=== PATIENT | male | born 1950 | race Caucasian/White ===

== ENCOUNTER 2024-01-03 10:29 | Observation (INO) ==
[2024-01-03 11:15] LABS: Basophils # (auto) 0.06 K/uL (0.00-0.20); Basophils % (auto) 0.5 %; Eosinophils # (auto) 0.23 K/uL (0.00-0.50); Hematocrit (blood only) 45.5 % (42.0-52.0); Hemoglobin 15.7 g/dl (14.0-18.0); Immature Granulocytes # (auto) 0.02 K/uL (0.01-0.20); Immature Granulocytes % (auto) 0.2 %; Lymphocytes # (auto) 2.04 K/uL (1.20-3.40); Lymphocytes % (auto) 17.4 %; Mean Corpuscular Hemoglobin 32.4 pg (25.0-34.0); Mean Corpuscular Hgb Conc 34.5 g/dL (32.0-36.0); Mean Platelet Volume 9.5 fL (9.4-12.4); Monocytes # (auto) 0.71 K/uL (0.11-0.59); Neutrophils # (auto) 8.68 K/uL (1.40-6.50); Neutrophils % (auto) 73.9 %; Platelet Count 239 K/uL (130-400); RDW Coefficient of Variation 12.4 % (11.5-14.5); RDW Standard Deviation 42.9 fL (36.4-46.3); Red Blood Count 4.84 M/uL (4.70-6.10); White Blood Count 11.74 K/ul (4.8-10.8)
--- NOTE | 2024-01-03 11:26 | XRay Report ---
XR chest 1V portable HISTORY: 73 years-old Male dizziness COMPARISON: None TECHNIQUE: AP view of the chest FINDINGS: Heart size is mildly enlarged. Mild interstitial coarsening is likely chronic. No pneumothorax, pleur al effusion or airspace consolidation. Spondylotic spurring of the spine. IMPRESSION: Cardiomegaly without acute process. ACT 112: Negative or not required by law. The above report was generated using voice recognition software. It may contain grammatical, syntax o r spelling errors. Electronically signed by: Arjun Bain M.D. 01/03/2024 11:25 AM
[2024-01-03 11:34] LABS: Albumin Globulin Ratio 1.4 (0.9-2); Albumin Level 4.2 gm/dl (3.4-5.0); BUN Creatinine Ratio 20.5 (10-20); Bilirubin,Total 0.8 mg/dl (0.2-1.0); Calcium 9.4 mg/dl (8.6-10.3); Creatinine Clr Calc Pharmacy 102.3 ml/min; Magnesium 2.2 mg/dl (1.7-2.4); Potassium 4.3 mmol/L (3.5-5.1); Total Protein 7.2 gm/dl (6.0-8.3)
[2024-01-03 11:40] LABS: Troponin I High Sensitivity 3.3 pg/ml (0-20)
[2024-01-03 11:41] LABS: Prothrombin Time 10.9 Seconds (9.0-12.0)
[2024-01-03 12:05] LABS: Adenovirus PCR Not Detected (NotDetected); Bordetella parapertussis PCR Not Detected (NotDetected); Bordetella pertussis PCR Not Detected (NotDetected); Chlamydia pneumoniae PCR Not Detected (NotDetected); Coronavirus 229E PCR Not Detected (NotDetected); Coronavirus CoV-2 (COVID19)PCR Not Detected (NotDetected); Coronavirus HKU1 PCR Not Detected (NotDetected); Coronavirus NL63 PCR Not Detected (NotDetected); Coronavirus OC43PCR Not Detected (NotDetected); Human Metapneumovirus PCR Not Detected (NotDetected); Influenza A PCR Not Detected (NotDetected); Influenza B PCR Not Detected (NotDetected); Mycoplasma pneumoniae PCR Not Detected (NotDetected); Parainfluenza Virus 1 PCR Not Detected (NotDetected); Parainfluenza Virus 2 PCR Not Detected (NotDetected); Parainfluenza Virus 3 PCR Not Detected (NotDetected); Parainfluenza Virus 4 PCR Not Detected (NotDetected); Respiratory Syncytial VirusPCR Not Detected (NotDetected); Rhinovirus/Enterovirus PCR Not Detected (NotDetected)
[2024-01-03] MEDS: ONDANSETRON INJ 2 MG/ML 2 ML VIAL IV STA (12:07)
--- NOTE | 2024-01-03 12:11 | CT Scan Report ---
CT head/brain wo con CLINICAL HISTORY: 73 years-old Male with dizziness; amb dysfunction. Acute dizziness TECHNIQUE: Multiple axial CT images of the head were obtained without contrast. A dose lowering tech nique was utilized adhering to the principles of ALARA. CT DOSE: 859.95 mGy.cm COMPARISON: None. FINDINGS: No acute intracranial hemorrhage, midline shift, intracranial mass, hydrocephalus, territorial ischem ia or abnormal extra-axial collection. Motion degraded exam. Involutional changes with probable chron ic microvascular ischemic disease. Ill-defined 2 cm hypodense focus in the left cerebellum, image 10 series 2. The calvarium is intact. Mild/moderate thickening of the right maxillary and ethmoid sinuses. Mastoi d air cells are clear. IMPRESSION: 1. Motion degraded exam. 2. Ill-defined 2 cm hypodense focus in the left cerebellum suggestive of an age-indeterminate infarct . 3. Involutional changes with chronic microvascular ischemic disease. ACT 112: Negative or not required by law. The above report was generated using voice recognition software. It may contain grammatical, syntax o r spelling errors. Electronically signed by: Arjun Bain M.D. 01/03/2024 12:08 PM
--- NOTE | 2024-01-03 12:24 | Emergency Department Note ---
Impression & Plan Dizziness, Stroke-like symptoms ED Provider Note HISTORY OF PRESENT ILLNESS: Patient is a 73-year-old male presenting with dizziness. Patient reports that when he woke up this morning he felt very dizzy like the world was spinning and he was going to pass out. He reports that this occurred at around 8:30 AM. He states that he went to bed normal at 2200 last night. He has a history of vertigo but states this feels different. He states that he has had nausea and a few episodes of vomiting. His reports that he seems very groggy and not his normal self. Patient denies any chest pain or shortness of breath. He reports feeling lightheaded and like he is going to pass out. He denies any double or blurry vision. Denies any numbness, tingling or weakness in his extremities. Patient is on eliquis daily. ROS: as above PHYSICAL EXAM: Constitutional: Patient appears in no acute distress. HENT: Head: Normocephalic and atraumatic. Eyes: EOMI, PERRL Mouth/Throat: Mucous membranes moist. Neck: Trachea midline. Neck supple. Cardiovascular: RRR, No murmurs, rubs or gallops. Intact distal pulses. Pulmonary/Chest: No respiratory distress. Breath sounds clear and equal bilaterally. No wheezes or rales. Abdominal: Abdomen soft, no tenderness, rebound or guarding. Musculoskeletal: No edema, tenderness or deformity noted. Skin: Warm and dry. No rash, erythema, pallor or cyanosis Psychiatric: Appropriate mood and affect for situation. Neurological: Alert and keenly responsive. Facies symmetric. Able to raise eyebrows, close eyes, smile, puff mouth, stick out tongue, move tongue left and right and raise palate symmetrically. Able to shrug shoulders. PERRLA. SILT to forehead below eye and at jawline. Can hear soft noise bilaterally. Good finger to nose. Strength 5/5 in bilateral upper and lower extremities. SILT throughout bilateral upper and lower extremities. MDM: - Vitals signs showed bradycardia. - History obtained via patient. History as above. - Chronic conditions affecting care: HTN; HLD; Afib - Differential diagnoses include, but are not limited to: peripheral vertigo; CVA; intracranial hemorrhage; dysrhythmia; symptomatic bradycardia; electrolyte abnormality; ACS - Order placed for continuous cardiac monitoring. At this time, monitor showed rate of 54 bpm with normal sinus rhythm, per my interpretation. - External medical records reviewed. - EKG interpreted by myself showed normal sinus rhythm. Rate bradycardic at 46 bpm. QT 474. No acute ischemic changes. - Laboratory workup interpreted by myself showed leukocytosis (WBC 11.74); normal PT/INR; stable electrolytes; normal troponin - CXR negative for pneumonia, per my interpretation - CT head wo contrast showed a 2 cm hypodense focus in the left cerebellum concerning for an age-indeterminate infarct. - Patient given 4 mg IV zofran for nausea and vomiting after returning from CT scan. - Patient reports he has not taken his Eliquis today. Given 324 mg aspirin and his 5 mg p.o. Eliquis. - CTA head/neck negative - Unfortunately, patient woke up with symptoms, so he is outside of the window for TNK. No obvious LVO on CTA imaging, so patient is not a candidate for thrombectomy. - Viral respiratory panel negative - On reassessment, patient is feeling slightly improved, though is still having dizziness. States the dizziness is just not as intense as it was earlier. Will admit the patient to the hospital service for further strokelike symptoms workup, given his CT Noncon showing an age-indeterminate infarct in the cerebellum. Given his new onset of symptoms today, this may be a more acute to subacute infarct. - Discussion was had with lead case manager about patient's case and need for admission - Hospitalist consulted for admission - Patient admitted to [facility] Hospitalist service for further evaluation and management. ASSESSMENT AND PLAN: Diagnosis: Dizziness; strokelike symptoms Plan: Admit Past Med/Surg History Problem List (Updated 01/03/24 @ 14:38 by Jaymie Painting MD) Stroke-like symptoms (Acute) Dizziness (Acute) Social History Smoking Status: Never smoker Feels Safe at Home: Yes Allergies Allergies Allergy/AdvReac Type Severity Reaction Status Date / Time No Known Allergies Allergy Unverified 01/03/24 14:03 Home Meds Home Medications Medication Instructions Recorded Confirmed apixaban 5 mg tablet (Eliquis) 5 mg PO BID 01/03/24 01/03/24 finasteride 5 mg tablet 5 mg PO DAILY 01/03/24 01/03/24 nitroglycerin 0.4 mg sublingual 0.4 mg sublingual UD PRN Chest Pain 01/03/24 01/03/24 tablet pravastatin 80 mg tablet 80 mg PO HS 01/03/24 01/03/24 sotalol 80 mg tablet 40 mg PO BID 01/03/24 01/03/24 Results & Data (ED) Vital Signs Vital Signs - 24 hr 01/03/24 10:43 01/03/24 11:03 01/03/24 11:03 Temperature 36.4 C L Temperature Source Oral Oral Pulse Rate 50 L Pulse Rate from SpO2 Sensor Respiratory Rate 16 Respiratory Effort / Characteristics Non-Labored Spontaneous Respiratory Depth Normal Respiratory Pattern Regular Blood Pressure 137/58 L Blood Pressure Mean 84 Pulse Oximetry 95 Oxygen Delivery Method Room Air Room Air Sepsis Recent Fever Within 48 Hours No Sepsis New/Unexplained Change in Mental Status N/A Sepsis Action Taken by Nursing No Action Required 01/03/24 11:03 01/03/24 11:12 01/03/24 11:18 Temperature Temperature Source Pulse Rate 46 L 48 L Pulse Rate from SpO2 Sensor Respiratory Rate Respiratory Effort / Characteristics Respiratory Depth Respiratory Pattern Blood Pressure Blood Pressure Mean Pulse Oximetry Oxygen Delivery Method Room Air Sepsis Recent Fever Within 48 Hours Sepsis New/Unexplained Change in Mental Status Sepsis Action Taken by Nursing 01/03/24 11:27 01/03/24 12:00 01/03/24 12:21 Temperature Temperature Source Pulse Rate 49 L 45 L Pulse Rate from SpO2 Sensor 46 L Respiratory Rate 13 13 Respiratory Effort / Characteristics Respiratory Depth Respiratory Pattern Blood Pressure 149/70 H Blood Pressure Mean 84 Pulse Oximetry Oxygen Delivery Method Sepsis Recent Fever Within 48 Hours Sepsis New/Unexplained Change in Mental Status Sepsis Action Taken by Nursing 01/03/24 12:30 01/03/24 12:45 01/03/24 12:48 Temperature Temperature Source Pulse Rate 42 L 46 L 56 L Pulse Rate from SpO2 Sensor 43 L 46 L Respiratory Rate 14 14 16 Respiratory Effort / Characteristics Respiratory Depth Respiratory Pattern Blood Pressure Blood Pressure Mean Pulse Oximetry 91 93 Oxygen Delivery Method Sepsis Recent Fever Within 48 Hours Sepsis New/Unexplained Change in Mental Status Sepsis Action Taken by Nursing 01/03/24 13:00 01/03/24 13:00 01/03/24 13:12 Temperature Temperature Source Pulse Rate 54 L Pulse Rate from SpO2 Sensor 55 L Respiratory Rate 14 Respiratory Effort / Characteristics Respiratory Depth Respiratory Pattern Blood Pressure 126/67 126/67 Blood Pressure Mean 102 102 Pulse Oximetry 94 Oxygen Delivery Method Sepsis Recent Fever Within 48 Hours Sepsis New/Unexplained Change in Mental Status Sepsis Action Taken by Nursing 01/03/24 13:27 01/03/24 13:51 01/03/24 13:54 Temperature Temperature Source Pulse Rate 53 L 56 L 54 L Pulse Rate from SpO2 Sensor 54 L 57 L 52 L Respiratory Rate 17 18 16 Respiratory Effort / Characteristics Respiratory Depth Respiratory Pattern Blood Pressure Blood Pressure Mean Pulse Oximetry 93 94 94 Oxygen Delivery Method Sepsis Recent Fever Within 48 Hours Sepsis New/Unexplained Change in Mental Status Sepsis Action Taken by Nursing 01/03/24 14:01 01/03/24 14:01 Temperature Temperature Source Pulse Rate Pulse Rate from SpO2 Sensor Respiratory Rate Respiratory Effort / Characteristics Respiratory Depth Respiratory Pattern Blood Pressure Blood Pressure Mean 90 90 Pulse Oximetry Oxygen Delivery Method Sepsis Recent Fever Within 48 Hours Sepsis New/Unexplained Change in Mental Status Sepsis Action Taken by Nursing Laboratory Data 01/03/24 11:00 01/03/24 11:00 Lab Results 01/03/24 01/03/24 Range/Units 11:00 11:05 WBC 11.74 H (4.8-10.8) K/ul RBC 4.84 (4.70-6.10) M/uL Hgb 15.7 (14.0-18.0) g/dl Hct 45.5 (42.0-52.0) % MCV 94.0 (80.0-100.0) fL MCH 32.4 (25.0-34.0) pg MCHC 34.5 (32.0-36.0) g/dL RDW Std Deviation 42.9 (36.4-46.3) fL RDW Coeff of [place] 12.4 (11.5-14.5) % Plt Count 239 (130-400) K/uL MPV 9.5 (9.4-12.4) fL Immature Gran % (Auto) 0.2 % Neut % (Auto) 73.9 % Lymph % (Auto) 17.4 % [place] % (Auto) 6.0 % Eos % (Auto) 2.0 % Baso % (Auto) 0.5 % Neut # (Auto) 8.68 H (1.40-6.50) K/uL Lymph # (Auto) 2.04 (1.20-3.40) K/uL [place] # (Auto) 0.71 H (0.11-0.59) K/uL Eos # (Auto) 0.23 (0.00-0.50) K/uL Baso # (Auto) 0.06 (0.00-0.20) K/uL Immature Gran # (Auto) 0.02 (0.01-0.20) K/uL PT 10.9 (9.0-12.0) Seconds INR 1.0 (0.9-1.1) Sodium 140 (136-145) mmol/L Potassium 4.3 (3.5-5.1) mmol/L Chloride 108 H (98-107) mmol/L Carbon Dioxide 26 (21-32) mmol/L Anion Gap 6 (3-11) BUN 17 (6-23) mg/dl Creatinine 0.83 (0.6-1.4) mg/dl Est Cr Clr Drug Dosing 102.3 ml/min eGFR 91.27 BUN/Creatinine Ratio 20.5 H (10-20) Glucose 154 H (70-99(Fasting)) mg/dl Calcium 9.4 (8.6-10.3) mg/dl Magnesium 2.2 (1.7-2.4) mg/dl Total Bilirubin 0.8 (0.2-1.0) mg/dl AST 20 (13-39) U/L ALT 18 (7-52) U/L Alkaline Phosphatase 49 (34-104) U/L Troponin I High Sens 3.3 (0-20) pg/ml Total Protein 7.2 (6.0-8.3) gm/dl Albumin 4.2 (3.4-5.0) gm/dl Globulin 3.0 (2.5-4.0) gm/dl Albumin/Globulin Ratio 1.4 (0.9-2) Adenovirus (PCR) Not Detected (NotDetected) B. pertussis DNA (PCR) Not Detected (NotDetected) B.parapertussis DNA PCR Not Detected (NotDetected) C. pneumoniae DNA (PCR) Not Detected (NotDetected) Coronavirus OC43 (PCR) Not Detected (NotDetected) Coronavirus HKU1 (PCR) Not Detected (NotDetected) Coronavirus 229E (PCR) Not Detected (NotDetected) SARS-CoV-2 (PCR) Not Detected (NotDetected) Coronavirus NL63 (PCR) Not Detected (NotDetected) Human Metapneumovir PCR Not Detected (NotDetected) Influenza Type A (PCR) Not Detected (NotDetected) Influenza Type B (PCR) Not Detected (NotDetected) M. pneumoniae (PCR) Not Detected (NotDetected) Parainfluenza 1 (PCR) Not Detected (NotDetected) Parainfluenza 2 (PCR) Not Detected (NotDetected) Parainfluenza 3 (PCR) Not Detected (NotDetected) Parainfluenza 4 (PCR) Not Detected (NotDetected) RSV (PCR) Not Detected (NotDetected) Entero/Rhino (PCR) Not Detected (NotDetected) Administered Medications Discontinued Medications Ioversol (Optiray 320 125ml) 112 ml IV ONCE ONE Stop: 01/03/24 14:04 Last Admin: 01/03/24 14:04 Dose: 112 ml Documented By: CASSIDY Ondansetron HCl (Ondansetron Inj 2 Mg/Ml 2 Ml Vial) 4 mg IV NOW STA Stop: 01/03/24 12:01 Last Admin: 01/03/24 12:07 Dose: 4 mg Documented By: LAINE Imaging Data Radiologist's Impression: Chest X-Ray 01/03/24 10:53 XR chest 1V portable HISTORY: 73 years-old Male dizziness COMPARISON: None TECHNIQUE: AP view of the chest FINDINGS: Heart size is mildly enlarged. Mild interstitial coarsening is likely chronic. No pneumothorax, pleural effusion or airspace consolidation. Spondylotic spurring of the spine. IMPRESSION: Cardiomegaly without acute process. ACT 112: Negative or not required by law. The above report was generated using voice recognition software. It may contain grammatical, syntax or spelling errors. Electronically signed by: Arjun Bain M.D. 01/03/2024 11:[address] 01/03/24 11:30 CT head/brain wo con CLINICAL HISTORY: 73 years-old Male with dizziness; amb dysfunction. Acute dizziness TECHNIQUE: Multiple axial CT images of the head were obtained without contrast. A dose lowering technique was utilized adhering to the principles of ALARA. CT DOSE: 859.95 mGy.cm COMPARISON: None. FINDINGS: No acute intracranial hemorrhage, midline shift, intracranial mass, hydrocephalus, territorial ischemia or abnormal extra-axial collection. Motion degraded exam. Involutional changes with probable chronic microvascular ischemic disease. Ill-defined 2 cm hypodense focus in the left cerebellum, image 10 series 2. The calvarium is intact. Mild/moderate thickening of the right maxillary and ethmoid sinuses. Mastoid air cells are clear. IMPRESSION: 1. Motion degraded exam. 2. Ill-defined 2 cm hypodense focus in the left cerebellum suggestive of an age- indeterminate infarct. 3. Involutional changes with chronic microvascular ischemic disease. ACT 112: Negative or not required by law. The above report was generated using voice recognition software. It may contain grammatical, syntax or spelling errors. Electronically signed by: Arjun Bain M.D. 01/03/2024 12:08 PM Head CTA 01/03/24 13:53 EXAMINATION: CT angio head with contrast CLINICAL HISTORY: Dizziness PRIORS: None TECHNIQUE: Contiguous CTA axial images were obtained through the head after the administration of intravenous contrast in arterial phase. Sagittal and coronal reformations are supplied. FINDINGS: Dental amalgam creates beam hardening artifact diminishing image quality. The vertebral arteries both contribute to the basilar artery. [place] demonstrates no significant atherosclerotic plaque, hemodynamically significant stenosis or aneurysmal dilatation. MCA, AYUSH and [place] are patent. No aneurysmal dilatation or arterial venous malformation identified. No enhancement in the brain. Moderate right mastoid air cell mucosal thickening. Mastoid air cells have a normal appearance. Calvarium unremarkable. IMPRESSION: No CTA evidence of an acute vascular abnormality. Electronically signed by Iona Evans 01-03-2024 2:32 PM Neck CTA 01/03/24 13:53 EXAMINATION: CT angio neck head with contrast CLINICAL HISTORY: Dizziness PRIORS: None TECHNIQUE: Contiguous CTA axial images were obtained through the head after the administration of intravenous contrast in arterial phase. Sagittal and coronal reformations are supplied. FINDINGS: Dental amalgam creates beam hardening artifact diminishing image quality. A left-sided aortic arch is present. Takeoff of the great vessels is normal with no atherosclerotic plaque. The common, internal and external carotid arteries are normal in appearance. No hemodynamically significant stenosis. No occlusive thrombus. The internal carotid arteries enter the petrous portion of the skull base normally. Vertebral arteries are codominant with a normal appearance and no evidence of hemodynamically significant stenosis, thrombus or dissection. IMPRESSION: No CTA evidence of acute vascular abnormality in the neck. Electronically signed by Iona Evans 01-03-2024 2:32 PM Discharge Plan Visit Data Chief Complaint: Dizziness Stated Complaint: DIZZYNESS AND VOMITING ED Provider: Jaymie Painting Discharge Problem: Dizziness, Stroke-like symptoms Forms Stand Alone Forms: My [facility] adhoclabs Prescriptions Prescriptions: No Action sotalol 80 mg tablet 40 mg PO BID pravastatin 80 mg tablet 80 mg PO HS nitroglycerin 0.4 mg tablet, sublingual 0.4 mg sublingual UD PRN (Reason: Chest Pain) finasteride 5 mg tablet 5 mg PO DAILY Eliquis 5 mg tablet 5 mg PO BID Referrals Referrals: JIMMY MILLER [Other]
[2024-01-03] MEDS: OPTIRAY 320 125ml IV ONE (14:04)
--- NOTE | 2024-01-03 14:32 | CT Scan Report ---
EXAMINATION: CT angio neck head with contrast CLINICAL HISTORY: Dizziness PRIORS: None TECHNIQUE: Contiguous CTA axial images were obtained through the head after the administration of intravenous contrast in arterial phase. Sagittal and coronal reformations are supplied. FINDINGS: Dental amalgam creates beam hardening artifact diminishing image quality. A left-sided aortic arch is present. Takeoff of the great vessels is normal with no atherosclerotic plaque. The common, internal and external carotid arteries are normal in appearance. No hemodynamically significant stenosis. No occlusive thrombus. The internal carotid arteries enter the petrous portion of the skull base normally. Vertebral arteries are codominant with a normal appearance and no evidence of hemodynamically significant stenosis, thrombus or dissection. IMPRESSION: No CTA evidence of acute vascular abnormality in the neck. Electronically signed by Iona Evans 01-03-2024 2:32 PM
--- NOTE | 2024-01-03 14:32 | CT Scan Report ---
EXAMINATION: CT angio head with contrast CLINICAL HISTORY: Dizziness PRIORS: None TECHNIQUE: Contiguous CTA axial images were obtained through the head after the administration of intravenous contrast in arterial phase. Sagittal and coronal reformations are supplied. FINDINGS: Dental amalgam creates beam hardening artifact diminishing image quality. The vertebral arteries both contribute to the basilar artery. [place] demonstrates no significant atherosclerotic plaque, hemodynamically significant stenosis or aneurysmal dilatation. MCA, [place]YUSH and [place] are patent. No aneurysmal dilatation or arterial venous malformation identified. No enhancement in the brain. Moderate right mastoid air cell mucosal thickening. Mastoid air cells have a normal appearance. Calvarium unremarkable. IMPRESSION: No CTA evidence of an acute vascular abnormality. Electronically signed by Iona Evans 01-03-2024 2:32 PM
--- NOTE | 2024-01-03 14:46 | History & Physical Report ---
Date of Service January 03, 2024 Assessment & Plan (1) Stroke-like symptoms: Plan: CT scan of the brain, CTA and MRI all reviewed. No evidence of acute stroke This could be peripheral neuronitis. Will give Antivert as needed Will give Tigan for nausea and vomiting and avoid QT prolonging antiemetics Consult neurology Consult OT and PT (2) Dizziness: Plan: Meclizine as needed (3) Bradycardia: Plan: Consult cardiology Check echocardiogram (4) Paroxysmal atrial fibrillation: Plan: Continue sotalol for now but may need further adjustment. Will defer to cardiology for further options Check echocardiogram (5) BPH (benign prostatic hyperplasia): Plan: Will continue finasteride Plan Patient is a full code. VTE prophylaxis: Patient on apixaban Total time spent in the care of this patient and with care coordination with specialist and ER provider was 78 minutes. History of Present Illness Chief Complaint: Dizziness Primary Care Provider: JIMMY PAUL Dixon is a 73-year-old male with a medical history significant for BPH, atrial fibrillation, and hyperlipidemia. He presents with dizziness. Patient reports that when he woke up this morning he felt very dizzy like the world was spinning and he was going to pass out. He reports that this occurred at around 8:30 AM. He states that he went to bed normal at 2200 last night. He has a history of vertigo but states this feels different. He states that he has had nausea and a few episodes of vomiting. He states he had dry heaves. His reports that he seems very groggy and not his normal self. Patient denies any chest pain or shortness of breath. He reports feeling lightheaded and like he is going to pass out. He denies any double or blurry vision. Denies any numbness, tingling or weakness in his extremities. Patient is on eliquis daily. He did not take the dose today. In the ED the CTA was negative for occlusive disease. There was an ill-defined density suggestive of acute or subacute stroke. However MRI scan reveals no acute stroke. EKG reveals sinus bradycardia. Allergies Allergy/AdvReac Type Severity Reaction Status Date / Time cetirizine [From Zyrtec] Allergy Severe Irregular Unverified 01/03/24 14:56 heartbeat oxymetazoline Allergy Severe Irregular Unverified 01/03/24 14:56 [From Afrin (oxymetazoline)] heartbeat phenylephrine Allergy Severe Irregular Unverified 01/03/24 14:56 [From [facility] heartbeat (phenylephrin)] Home Medications Medication Instructions Recorded Confirmed Type apixaban 5 mg tablet (Eliquis) 5 mg PO BID 01/03/24 01/03/24 History cyclosporine 0.05 % eye drops in a 1 drp OPB Q12H 01/03/24 01/03/24 History dropperette finasteride 5 mg tablet 5 mg PO DAILY 01/03/24 01/03/24 History nitroglycerin 0.4 mg sublingual 0.4 mg sublingual UD PRN Chest Pain 01/03/24 01/03/24 History tablet pravastatin 80 mg tablet 80 mg PO HS 01/03/24 01/03/24 History sotalol 80 mg tablet 40 mg PO BID 01/03/24 01/03/24 History Past Med/Surg History Problem List (Updated 01/03/24 @ 16:04 by Jerald Vergara DO) BPH (benign prostatic hyperplasia) Paroxysmal atrial fibrillation Bradycardia Stroke-like symptoms (Acute) Dizziness (Acute) Social History Smoking Status: Never smoker Feels Safe at Home: Yes Review of Systems Review of Systems: Constitutional- no fever; no weight loss Eyes- no acute visual changes ENT- no sinus drainage; no pharyngitis Pulmonary- no cough, no wheezing, no shortness of breath Cardiac- no chest pain, no palpitations, no orthopnea, no dependent edema GI-he had nausea and dry heaves earlier, no diarrhea, no melena, no hematochezia - no dysuria, no hematuria Musculoskeletal- no arthralgias, no myalgias Derm- no rashes, no new skin lesions, no changing skin lesions Hematologic- no unusual bruising, no unusual bleeding Lymphatics- no adenopathy Endocrine- no polyuria or polydipsia; no heat or cold intolerance Neuro- no headaches, profound objective vertigo Psych- no anxiety, no depression Physical Exam Physical Exam: General- adult elderly male seen at bedside in the ED. His daughter and his who is an RN is present. He is a good historian. 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 Head- atraumatic Eyes- PERRL, EOMI, anicteric ENT- oropharynx clear Neck- supple, no JVD, no adenopathy, no thyromegaly; carotids +2/2, no bruits appreciated Lungs- clear to auscultation and percussion Heart- regular rhythm at 58; no murmur, no gallop, no rub appreciated Abdomen- normal bowel sounds, soft, nontender, no masses or hepatosplenomegaly Extremities- no pretibial edema, no calf tenderness; peripheral pulses intact Neuro- alert, oriented x 3; PERRL, EOMI; no facial palsy; no dysarthria; motor 5/5 bilaterally; no cogwheel rigidity; patellar DTRs +2/2; toes downgoing bilat erally; finger to nose intact bilaterally, no visual field cuts Skin- warm & dry Results & Data Results & Data Vital Signs (Past 12 Hours) Vital Signs Temp Pulse Resp BP Pulse Ox O2 Del Method 01/03/24 13:54 54 L 16 94 01/03/24 13:51 56 L 18 94 01/03/24 13:27 53 L 17 93 01/03/24 13:12 54 L 14 94 01/03/24 13:00 126/67 01/03/24 13:00 126/67 01/03/24 12:48 56 L 16 01/03/24 12:45 46 L 14 93 01/03/24 12:30 42 L 14 91 01/03/24 12:21 45 L 13 01/03/24 12:00 149/70 H 01/03/24 11:27 49 L 13 01/03/24 11:18 48 L 01/03/24 11:12 46 L 01/03/24 11:03 Room Air 01/03/24 11:03 Room Air 01/03/24 10:43 36.4 C L 50 L 16 137/58 L 95 Room Air Diagnostic Findings Laboratory Results WBC 11.74 K/ul (4.8-10.8) H 01/03/24 11:00 RBC 4.84 M/uL (4.70-6.10) 01/03/24 11:00 Hgb 15.7 g/dl (14.0-18.0) 01/03/24 11:00 Hct 45.5 % (42.0-52.0) 01/03/24 11:00 MCV 94.0 fL (80.0-100.0) 01/03/24 11:00 MCH 32.4 pg (25.0-34.0) 01/03/24 11:00 MCHC 34.5 g/dL (32.0-36.0) 01/03/24 11:00 RDW Std Deviation 42.9 fL (36.4-46.3) 01/03/24 11:00 RDW Coeff of [place] 12.4 % (11.5-14.5) 01/03/24 11:00 Plt Count 239 K/uL (130-400) 01/03/24 11:00 MPV 9.5 fL (9.4-12.4) 01/03/24 11:00 Immature Gran % (Auto) 0.2 % 01/03/24 11:00 Neut % (Auto) 73.9 % 01/03/24 11:00 Lymph % (Auto) 17.4 % 01/03/24 11:00 [place] % (Auto) 6.0 % 01/03/24 11:00 Eos % (Auto) 2.0 % 01/03/24 11:00 Baso % (Auto) 0.5 % 01/03/24 11:00 Neut # (Auto) 8.68 K/uL (1.40-6.50) H 01/03/24 11:00 Lymph # (Auto) 2.04 K/uL (1.20-3.40) 01/03/24 11:00 [place] # (Auto) 0.71 K/uL (0.11-0.59) H 01/03/24 11:00 Eos # (Auto) 0.23 K/uL (0.00-0.50) 01/03/24 11:00 Baso # (Auto) 0.06 K/uL (0.00-0.20) 01/03/24 11:00 Immature Gran # (Auto) 0.02 K/uL (0.01-0.20) 01/03/24 11:00 PT 10.9 Seconds (9.0-12.0) 01/03/24 11:00 INR 1.0 (0.9-1.1) 01/03/24 11:00 Sodium 140 mmol/L (136-145) 01/03/24 11:00 Potassium 4.3 mmol/L (3.5-5.1) 01/03/24 11:00 Chloride 108 mmol/L (98-107) H 01/03/24 11:00 Carbon Dioxide 26 mmol/L (21-32) 01/03/24 11:00 Anion Gap 6 (3-11) 01/03/24 11:00 BUN 17 mg/dl (6-23) 01/03/24 11:00 Creatinine 0.83 mg/dl (0.6-1.4) 01/03/24 11:00 Est Cr Clr Drug Dosing 102.3 ml/min 01/03/24 11:00 eGFR 91.27 01/03/24 11:00 BUN/Creatinine Ratio 20.5 (10-20) H 01/03/24 11:00 Glucose 154 mg/dl (70-99(Fasting)) H 01/03/24 11:00 Calcium 9.4 mg/dl (8.6-10.3) 01/03/24 11:00 Magnesium 2.2 mg/dl (1.7-2.4) 01/03/24 11:00 Total Bilirubin 0.8 mg/dl (0.2-1.0) 01/03/24 11:00 AST 20 U/L (13-39) 01/03/24 11:00 ALT 18 U/L (7-52) 01/03/24 11:00 Alkaline Phosphatase 49 U/L (34-104) 01/03/24 11:00 Troponin I High Sens 3.3 pg/ml (0-20) 01/03/24 11:00 Total Protein 7.2 gm/dl (6.0-8.3) 01/03/24 11:00 Albumin 4.2 gm/dl (3.4-5.0) 01/03/24 11:00 Globulin 3.0 gm/dl (2.5-4.0) 01/03/24 11:00 Albumin/Globulin Ratio 1.4 (0.9-2) 01/03/24 11:00 Adenovirus (PCR) Not Detected (NotDetected) 01/03/24 11:05 B. pertussis DNA (PCR) Not Detected (NotDetected) 01/03/24 11:05 B.parapertussis DNA PCR Not Detected (NotDetected) 01/03/24 11:05 C. pneumoniae DNA (PCR) Not Detected (NotDetected) 01/03/24 11:05 Coronavirus OC43 (PCR) Not Detected (NotDetected) 01/03/24 11:05 Coronavirus HKU1 (PCR) Not Detected (NotDetected) 01/03/24 11:05 Coronavirus 229E (PCR) Not Detected (NotDetected) 01/03/24 11:05 SARS-CoV-2 (PCR) Not Detected (NotDetected) 01/03/24 11:05 Coronavirus NL63 (PCR) Not Detected (NotDetected) 01/03/24 11:05 Human Metapneumovir PCR Not Detected (NotDetected) 01/03/24 11:05 Influenza Type A (PCR) Not Detected (NotDetected) 01/03/24 11:05 Influenza Type B (PCR) Not Detected (NotDetected) 01/03/24 11:05 M. pneumoniae (PCR) Not Detected (NotDetected) 01/03/24 11:05 Parainfluenza 1 (PCR) Not Detected (NotDetected) 01/03/24 11:05 Parainfluenza 2 (PCR) Not Detected (NotDetected) 01/03/24 11:05 Parainfluenza 3 (PCR) Not Detected (NotDetected) 01/03/24 11:05 Parainfluenza 4 (PCR) Not Detected (NotDetected) 01/03/24 11:05 RSV (PCR) Not Detected (NotDetected) 01/03/24 11:05 Entero/Rhino (PCR) Not Detected (NotDetected) 01/03/24 11:05 Impressions Chest X-Ray 01/03/24 10:53 XR chest 1V portable HISTORY: 73 years-old Male dizziness COMPARISON: None TECHNIQUE: AP view of the chest FINDINGS: Heart size is mildly enlarged. Mild interstitial coarsening is likely chronic. No pneumothorax, pleural effusion or airspace consolidation. Spondylotic spurring of the spine. IMPRESSION: Cardiomegaly without acute process. ACT 112: Negative or not required by law. The above report was generated using voice recognition software. It may contain grammatical, syntax or spelling errors. Electronically signed by: Arjun Bain M.D. 01/03/2024 11:[address] 01/03/24 11:30 CT head/brain wo con CLINICAL HISTORY: 73 years-old Male with dizziness; amb dysfunction. Acute dizziness TECHNIQUE: Multiple axial CT images of the head were obtained without contrast. A dose lowering technique was utilized adhering to the principles of ALARA. CT DOSE: 859.95 mGy.cm COMPARISON: None. FINDINGS: No acute intracranial hemorrhage, midline shift, intracranial mass, hydrocephalus, territorial ischemia or abnormal extra-axial collection. Motion degraded exam. Involutional changes with probable chronic microvascular ischemic disease. Ill-defined 2 cm hypodense focus in the left cerebellum, image 10 series 2. The calvarium is intact. Mild/moderate thickening of the right maxillary and ethmoid sinuses. Mastoid air cells are clear. IMPRESSION: 1. Motion degraded exam. 2. Ill-defined 2 cm hypodense focus in the left cerebellum suggestive of an age- indeterminate infarct. 3. Involutional changes with chronic microvascular ischemic disease. ACT 112: Negative or not required by law. The above report was generated using voice recognition software. It may contain grammatical, syntax or spelling errors. Electronically signed by: Arjun Bain M.D. 01/03/2024 12:08 PM Head CTA 01/03/24 13:53 EXAMINATION: CT angio head with contrast CLINICAL HISTORY: Dizziness PRIORS: None TECHNIQUE: Contiguous CTA axial images were obtained through the head after the administration of intravenous contrast in arterial phase. Sagittal and coronal reformations are supplied. FINDINGS: Dental amalgam creates beam hardening artifact diminishing image quality. The vertebral arteries both contribute to the basilar artery. [place] of [place] demonstrates no significant atherosclerotic plaque, hemodynamically significant stenosis or aneurysmal dilatation. MCA, AYUSH and [employer] CUTTING SUPER[employer]OR are patent. No aneurysmal dilatation or arterial venous malformation identified. No enhancement in the brain. Moderate right mastoid air cell mucosal thickening. Mastoid air cells have a normal appearance. Calvarium unremarkable. IMPRESSION: No CTA evidence of an acute vascular abnormality. Electronically signed by Iona Evans 01-03-2024 2:32 PM Neck CTA 01/03/24 13:53 EXAMINATION: CT angio neck head with contrast CLINICAL HISTORY: Dizziness PRIORS: None TECHNIQUE: Contiguous CTA axial images were obtained through the head after the administration of intravenous contrast in arterial phase. Sagittal and coronal reformations are supplied. FINDINGS: Dental amalgam creates beam hardening artifact diminishing image quality. A left-sided aortic arch is present. Takeoff of the great vessels is normal with no atherosclerotic plaque. The common, internal and external carotid arteries are normal in appearance. No hemodynamically significant stenosis. No occlusive thrombus. The internal carotid arteries enter the petrous portion of the skull base normally. Vertebral arteries are codominant with a normal appearance and no evidence of hemodynamically significant stenosis, thrombus or dissection. IMPRESSION: No CTA evidence of acute vascular abnormality in the neck. Electronically signed by Iona Evans 01-03-2024 2:32 PM EXAMINATION: MRI brain without con CLINICAL HISTORY: Dizziness since waking up this morning, no recent head injury, no history of stroke PRIORS: 01/03/2024 head neck CTA TECHNIQUE: Contiguous axial images were obtained through the brain without the use of intravenous contrast FINDINGS: Mild to moderate parenchymal volume loss noted. No restricted diffusion to suggest an acute or subacute infarction. Delong-white differentiation is appropriate. No intra-axial or extra-axial hemorrhage. Moderate scattered hyperintensities present in the periventricular deep white matter and brainstem. Cerebellum unremarkable. No blood products on the gradient image. Ventricles are appropriate in size and configuration. Cerebellar tonsils are not low-lying. Calvarium unremarkable. Paranasal sinuses show mild to moderate mucosal thickening of the right maxillary sinus. No air-fluid levels. Nested air cells well-pneumatized. Nasal septum mildly deviated to the left. Globes and retrobulbar fat within normal limits. IMPRESSION: 1. No MRI evidence of an acute intracranial abnormality. 2. Mild to moderate parenchymal volume loss with small vessel occlusive disease. 3. Mild to moderate chronic right maxillary sinusitis
--- NOTE | 2024-01-03 15:11 | Magnetic Resonance Report ---
EXAMINATION: MRI brain without con CLINICAL HISTORY: Dizziness since waking up this morning, no recent head injury, no history of stroke PRIORS: 01/03/2024 head neck CTA TECHNIQUE: Contiguous axial images were obtained through the brain without the use of intravenous contrast FINDINGS: Mild to moderate parenchymal volume loss noted. No restricted diffusion to suggest an acute or subacute infarction. Delong-white differentiation is appropriate. No intra-axial or extra-axial hemorrhage. Moderate scattered hyperintensities present in the periventricular deep white matter and brainstem. Cerebellum unremarkable. No blood products on the gradient image. Ventricles are appropriate in size and configuration. Cerebellar tonsils are not low-lying. Calvarium unremarkable. Paranasal sinuses show mild to moderate mucosal thickening of the right maxillary sinus. No air-fluid levels. Nested air cells well-pneumatized. Nasal septum mildly deviated to the left. Globes and retrobulbar fat within normal limits. IMPRESSION: 1. No MRI evidence of an acute intracranial abnormality. 2. Mild to moderate parenchymal volume loss with small vessel occlusive disease. 3. Mild to moderate chronic right maxillary sinusitis Electronically signed by Iona Evans 01-03-2024 3:11 PM
[2024-01-03] MEDS: ASPIRIN CHEW 324 MG PO STA (15:37)
[2024-01-03] MEDS: APIXABAN 5 MG TABLET PO STA (15:37)
[2024-01-03] MEDS ORDERED: MECLIZINE HCL 25 MG TAB PO PRN (15:56)
[2024-01-03] MEDS ORDERED: TIGAN IM PRN (15:56)
[2024-01-03 15:59] LABS: Appearance Urine Clear (Clear); Bilirubin Urine Negative (Negative); Blood Urine Negative (Negative); Color Urine Yellow; Glucose Urine UA Negative (Negative); Ketones Urine Negative (Negative); Leukocyte Esterase Urine Negative (Negative); Nitrite Urine Negative (Negative); Protein Urine Negative (Negative); Specific Gravity Urine > 1.045 (1.000-1.030); Urobilinogen Urine Negative (Negative); pH Urine 5.5 (4.5-7.5)
[2024-01-03] MEDS ORDERED: POLYETHYLENE (MIRALAX) 17 GM PACK PO PRN (18:16)
[2024-01-03] MEDS ORDERED: ACETAMINOPHEN 325 MG TAB PO PRN (18:16)
[2024-01-03] MEDS ORDERED: NITROGLYCERIN SL 0.4 MG/TAB TAB SL PRN (18:16)
[2024-01-03] MEDS ORDERED: ALUMINUM/MAGNESIUM SUSP 30 ML UDC PO PRN (18:16)
[2024-01-03] MEDS ORDERED: ARTIFICIAL TEARS OP PRN (18:44)
[2024-01-03] MEDS ORDERED: PROCHLORPERAZINE 5 MG in SYRINGE 4 ML IV PRN (19:00)
[2024-01-03] MEDS: SOTALOL HCL 80 MG TAB PO SCH (20:03)
[2024-01-03] MEDS: PRAVASTATIN SOD 40 MG TAB PO SCH (20:04)
[2024-01-03] MEDS ORDERED: APIXABAN 5 MG TABLET PO SCH (21:00)
[2024-01-04 03:42] VITALS: RESP 16; TEMP 97.7
[2024-01-04] MEDS: APIXABAN 5 MG TABLET PO SCH (08:34)
[2024-01-04] MEDS: FINASTERIDE 5 MG TAB PO SCH (08:34)
[2024-01-04] MEDS ORDERED: APIXABAN 5 MG TABLET PO SCH (09:00)
[2024-01-04 11:02] VITALS: BP 171/65; O2SAT 91
--- NOTE | 2024-01-04 11:46 | Neurology Consultation ---
Date of Consultation January 04, 2024 Assessment & Plan (1) BPPV (benign paroxysmal positional vertigo): Deng Dixon presents with vertigo consistent with BPPV, now resolved. No further neurologic workup or change in medication recommended. He should remain on eliquis for stroke prevention. Telehealth Consultation Telehealth Information Telehealth Information: I performed this visit using a real-time telehealth connection between my location and the patients location ([facility]). After connecting through interactive tele-video, patient was identified by name and date of and/or wristband check.Patient (or authorized healthcare customer service representative) was informed that this was a telemedicine visit and it was being conducted confidentially over secure lines. My office door was closed and no one else was present in the room with me.Patient (or authorized healthcare customer service representative) provided consent to proceed with the visit, expressed an understanding of privacy and security of the telemedicine visit, and gave permission to have a hospital customer service representative in the room in order to assist with the visit and to conduct portions of the visit, as needed. I informed the patient (or authorized healthcare customer service representative) that I reviewed their record and presented the opportunity for them to ask any questions regarding the visit today. The patient agreed to participate. History of Present Illness Reason for Consultation: Vertigo Requesting Physician: Dr. Samayoa Attending Physician: Logan Samayoa, History of Present Illness Deng Dixon is a 73 yo M presenting with vertigo when he got out of bed yesterday morning. The patient reports his symptoms have resolved. Yesterday he noted room spinning vertigo, nausea and vomiting. This has happened to him before but never this severe. No hx of stroke, patient is appropriately taking his eliquis. Allergies Allergy/AdvReac Type Severity Reaction Status Date / Time cetirizine [From Zyrtec] Allergy Severe Irregular Unverified 01/03/24 14:56 heartbeat oxymetazoline Allergy Severe Irregular Unverified 01/03/24 14:56 [From Afrin (oxymetazoline)] heartbeat phenylephrine Allergy Severe Irregular Unverified 01/03/24 14:56 [From [facility] Childrens heartbeat (phenylephrin)] Home Medications Medication Instructions Recorded Confirmed Type apixaban 5 mg tablet (Eliquis) 5 mg PO BID 01/03/24 01/03/24 History cyclosporine 0.05 % eye drops in a 1 drp OPB Q12H 01/03/24 01/03/24 History dropperette finasteride 5 mg tablet 5 mg PO DAILY 01/03/24 01/03/24 History nitroglycerin 0.4 mg sublingual 0.4 mg sublingual UD PRN Chest Pain 01/03/24 01/03/24 History tablet pravastatin 80 mg tablet 80 mg PO HS 01/03/24 01/03/24 History sotalol 80 mg tablet 40 mg PO BID 01/03/24 01/03/24 History Patient History Social History Smoking Status: Never smoker Hx Alcohol Use: No Hx Substance Use: No Preferred 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 Results & Data Vital Signs (Past 12 Hours) Vital Signs Temp Pulse Pulse Resp BP Pulse Ox O2 Del Method 01/04/24 11:02 36.5 C 58 L 16 171/65 H 91 Room Air 01/04/24 07:15 36.5 C 63 16 115/58 L 98 Room Air 01/04/24 06:59 62 01/04/24 03:40 36.5 C 65 16 115/66 93 Room Air 01/03/24 23:22 36.6 C 69 18 110/56 L 92 Room Air Laboratory Results Abnormal lab results 01/03/24 Range/Units 14:50 Ur Specific [place] > 1.045 H (1.000-1.030) Diagnostic Findings MRI Brain unremarkable, CTA head and neck unremarkable
--- NOTE | 2024-01-04 14:29 | Cardiology Consultation ---
Date of Consultation January 04, 2024 Assessment & Plan (1) Dizziness: (2) BPPV (benign paroxysmal positional vertigo): (3) Paroxysmal atrial fibrillation: (4) Chronic anticoagulation: (5) HTN (hypertension): (6) Dyslipidemia, goal LDL below 100: (7) Family history of ischemic heart disease: Plan Very pleasant 73-year-old male presenting for evaluation of dizziness. History most suggestive of vertigo. Stroke workup negative. Mild bradycardia observed on presentation appears vagally mediated. Continuous telemetry monitoring thereafter demonstrates sinus with first-degree heart block, heart rates predominantly in the 60s and 70s; occasional PVC observed. No significant bradycardia or pauses noted. Resting echocardiography with preserved LV systolic function. Options of management discussed. No overt indication for permanent pacemaker based on available information though suspect patient will likely require in his lifetime. Recommend close follow-up with his Car Stereo Installer at [facility]. Continue sotalol as prescribed, 40 mg tw ice per day. Continue Eliquis anticoagulation, 5 mg twice per day. Supervising Physician Co-Signing Physician Notes I spent a total of 50 minutes on the date of service in preparation, delivery, and documentation of the care provided to this patient, excluding any time spent in the performance of separately billed services. I have personally performed a history and physical examination on the patient. I have reviewed the advance practitioner's documentation, and I agree with, and take responsibility for the plan of care. History of Present Illness Reason for Consultation: PAfib, TIA, bradycardia on sotolol Requesting Physician: Jerald Vergara Attending Physician: Dr. Logan Samayoa, DO History of Present Illness Mr. Deng Dixon is a very pleasant 73-year-old male who lives in [facility], [place], [place]. The patient was visiting his daughter and grandchildren in [place]. He awoke yesterday with plans of returning home. notes that he respirations seemed a little slower than normal. He notes having sleep apnea and previously utilized CPAP for 6-7 years however now he utilizes a dental appliance however this was not utilized last night. After getting up to go to the bathroom he experienced a sensation of everything, the room, spinning around him that was associated with nausea and dry heaves x 3-4. His , a retired nurse, notes that his walk was unsteady and his speech was slower somewhat sluggish. Patient then presented to the ER due to dizziness, concern for strokelike symptoms. Initial head CT revealed an ill-defined 2 cm hypodense focus in the left cerebellum suggestive of an age-indeterminate infarct along with involutional changes of chronic microvascular ischemic disease. Brain MRI showed no evidence of acute intracranial abnormality, revealing mild to moderate parenchymal volume loss with small vessel occlusive disease and mild to moderate chronic right maxillary sinusitis. CTA of the head and neck were negative for acute vascular abnormality. Patient is followed by Dr. Williamson at [facility] with history of paroxysmal atrial fibrillation. He was previously prescribed sotalol at 80 mg twice per day until approximately 3 years ago when he experienced a near syncopal episode. Observed bradycardia led to reduction in sotalol dosing to 40 mg twice per day. Patient notes wearing a 30-day monitor approximately 6 months ago with minimal atrial fibrillation observed, occasional ventricular ectopy. At that time decision was made to continue sotalol at 40 mg twice per day. He is chronically prescribed Eliquis anticoagulation EKG on presentation revealed sinus bradycardia with a ventricular rate of 46 bpm with a first-degree AV block, without acute ST segment change. QTc was notably 414 ms. Resting echocardiography on January 04, 2024 revealed preserved LV systolic function without wall motion abnormality. RV was described as mildly dilated with normal function. Mild mitral regurgitation noted. Bubble study negative for overt [id number] intracardiac shunt. Past Medical and Surgical History: Paroxysmal atrial fibrillation. FERMIN treated with dental appliance. Hypertension. Dyslipidemia. BPH. Vertigo. Family History: Father underwent CABG x 4 at the age of 62. Mother with mitral valve prolapse. Two brothers; one has CAD status post PCI. Social History: Non-smoker. Rare alcohol. No illegal drug use. 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 Daughter in [place]. Allergies Allergy/AdvReac Type Severity Reaction Status Date / Time cetirizine [From Zyrtec] Allergy Severe Irregular Unverified 01/03/24 14:56 heartbeat oxymetazoline Allergy Severe Irregular Unverified 01/03/24 14:56 [From Afrin (oxymetazoline)] heartbeat phenylephrine Allergy Severe Irregular Unverified 01/03/24 14:56 [From Afrin Childrens heartbeat (phenylephrin)] Home Medications Medication Instructions Recorded Confirmed Type apixaban 5 mg tablet (Eliquis) 5 mg PO BID 01/03/24 01/03/24 History cyclosporine 0.05 % eye drops in a 1 drp OPB Q12H 01/03/24 01/03/24 History dropperette finasteride 5 mg tablet 5 mg PO DAILY 01/03/24 01/03/24 History nitroglycerin 0.4 mg sublingual 0.4 mg sublingual UD PRN Chest Pain 01/03/24 01/03/24 History tablet pravastatin 80 mg tablet 80 mg PO HS 01/03/24 01/03/24 History sotalol 80 mg tablet 40 mg PO BID 01/03/24 01/03/24 History meclizine 25 mg tablet 25 mg PO QID PRN dizziness #30 tabs 01/04/24 Rx Patient History Social History Smoking Status: Never smoker Hx Alcohol Use: No Hx Substance Use: No Preferred Language: [place] Application Systems Engineer Required: No Beliefs That Will Affect Care: None Current Living Situation: Spouse Feels Safe at Home: Yes Safety Concerns: Feels Safe At This Time Assistive Devices: Glasses Review of Systems 2 Review of Systems: Complete Review of Systems is as stated above, negative, or noncontributory Physical Exam Physical Exam: General: NAD. HENT: Normocephalic. Atraumatic. Eyes: PER. Conjunctiva pink, sclera clear. Neck: No carotid bruits. No JVD. Heart: Regular at 52 bpm. No murmur. Lungs: Clear to auscultation. Abdomen: +BS. Soft. Nontender. No masses or organomegaly. Extremities: No clubbing, cyanosis, or edema. Limited neurological examination is without focal deficits. Pulses: Posterior tibial=2/4. Results & Data Vital Signs (Past 12 Hours) Vital Signs Temp Pulse Pulse Resp BP Pulse Ox O2 Del Method 01/04/24 11:02 36.5 C 58 L 16 171/65 H 91 Room Air 01/04/24 07:15 36.5 C 63 16 115/58 L 98 Room Air 01/04/24 06:59 62 01/04/24 03:40 36.5 C 65 16 115/66 93 Room Air Laboratory Results Intake and Output 01/03/24 01/04/24 01/04/24 22:59 06:59 14:59 Intake Total 260 / 560 300 / 560 450 / 450 Balance 260 / 560 300 / 560 450 / 450 Intake: Oral 260 / 560 300 / 560 450 / 450 Other: # Unmeasured Voids 2 1 Weight 111.9 kg 110.9 kg Weight Measurement Method Built in [facility] Built in [facility]
--- NOTE | 2024-01-04 14:33 | Discharge Summary ---
Discharge Summary Date of Service January 04, 2024 Principal Dx & Hospital Course #1 = Principal Diagnosis (1) BPPV (benign paroxysmal positional vertigo): (2) Paroxysmal atrial fibrillation: (3) BPH (benign prostatic hyperplasia): Plan Patient presented to the emergency room with acute onset of severe vertigo and nausea and vomiting. Initial workup in the emergency room was unremarkable for acute stroke. His symptoms completely resolved. Also noted that he had some bradycardia in the ED. Patient was observed in the hospital. His bradycardia resolved with his vertiginous symptoms. MRI of the brain was negative for acute stroke. Patient had no other further bradycardia. Cardiology consultation was obtained who recommended he stays on his usual dose of sotalol. They believe that the patient most likely had some vagal bradycardia due to the vomiting he had prior to admission and has subsequently resolved. He should follow-up with his outpatient director of instrumental music. Patient was seen by neurology. Their evaluation was determined that his symptoms most likely due to benign positional vertigo has no evidence of acute intracerebral ischemic event. Acute stroke/TIA was ruled out. Time of discharge patient was up and ambulatory. His vital signs are stable. He had no further recurrent vertigo. He will continue his home medications. Give him a prescription for meclizine to have as needed should this recur and follow-up with his outpatient providers. Notes For Next Care Provider Medication Changes From Visit Meclizine as needed for dizziness Admission HPI Per Admitting Provider Deng Dixon is a 73-year-old male with a medical history significant for BPH, atrial fibrillation, and hyperlipidemia. He presents with dizziness. Patient reports that when he woke up this morning he felt very dizzy like the world was spinning and he was going to pass out. He reports that this occurred at around 8:30 AM. He states that he went to bed normal at 2200 last night. He has a history of vertigo but states this feels different. He states that he has had nausea and a few episodes of vomiting. He states he had dry heaves. His reports that he seems very groggy and not his normal self. Patient denies any chest pain or shortness of breath. He reports feeling lightheaded and like he is going to pass out. He denies any double or blurry vision. Denies any numbness, tingling or weakness in his extremities. Patient is on eliquis daily. He did not take the dose today. In the ED the CTA was negative for occlusive disease. There was an ill-defined density suggestive of acute or subacute stroke. However MRI scan reveals no acute stroke. EKG reveals sinus bradycardia. Admission Exam Per Admitting Provider See H&P Discharge Exam Constitutional: Alert HEENT: Mucous membranes moist. Lungs: Clear to auscultation, decreased, no wheezes rales or rhonchi CV: S1-S2, regular Abdomen: Soft, nontender, nondistended Extremities: No significant edema Neuro: No focal deficits Psych: Cooperative, normal mood Updated Medication List Medication Instructions Recorded Confirmed Type apixaban 5 mg tablet (Eliquis) 5 mg PO BID 01/03/24 01/03/24 History cyclosporine 0.05 % eye drops in a 1 drp OPB Q12H 01/03/24 01/03/24 History dropperette finasteride 5 mg tablet 5 mg PO DAILY 01/03/24 01/03/24 History nitroglycerin 0.4 mg sublingual 0.4 mg sublingual UD PRN Chest Pain 01/03/24 01/03/24 History tablet pravastatin 80 mg tablet 80 mg PO HS 01/03/24 01/03/24 History sotalol 80 mg tablet 40 mg PO BID 01/03/24 01/03/24 History meclizine 25 mg tablet 25 mg PO QID PRN dizziness #30 tabs 01/04/24 Rx Hospital Stay Data Consultations 01/03/24 14:43 ED Decision to Admit Stat 01/03/24 18:16 Consult Cardiology Routine Consult Neurology Routine Diagnostic Imagining Performed 01/03/24 11:30 CT head/brain wo con Stat 01/03/24 13:53 CTA head w con [CT angio head w con] Stat CTA neck with con [CT angio neck with con] Stat MRI Brain [MR brain wo con] Stat Reviewed imaging, laboratory and diagnostic studies. Pertinent findings as below. CTA of the head and neck negative for large vessel occlusion MRI of the brain negative for cerebral infarction Echocardiogram showed ejection fraction 55 to 60% with mildly dilated right ventricle, negative bubble study. I refer you to full report for details. Pending Results Patient Have Any Pending Studies at Discharge: No Discharge Instructions Given to Patient (Per Discharging Provider) Here heart rate was briefly low most likely due to vagal response from the vomiting that he had prior to admission. Cardiology here is recommending you touch base with your outpatient director of instrumental music, but recommend no change in medicine at this time. Total Time Total Time Spent Total Time Spent (In Minutes): 36
[2024-01-04 14:56] VITALS: PULSE 59
--- NOTE | 2024-01-05 17:11 | Electrocardiogram Report ---
Test Reason : Blood Pressure : */* mmHG Vent. Rate : 61 BPM Atrial Rate : 61 BPM P-R Int : 204 ms QRS Dur : 104 ms QT Int : 446 ms P-R-T Axes : 62 39 58 degrees QTcB Int : 448 ms Normal sinus rhythm Normal ECG When compared with ECG of 03-Jan-2024 10:55, No significant change was found Confirmed by Michael Chong ([id number]) on 01/05/2024 5:11:34 PM Referred By: REFERRED SELF Confirmed By: Michael Chong
--- NOTE | 2024-01-05 17:11 | Electrocardiogram Report ---
Test Reason : Blood Pressure : */* mmHG Vent. Rate : 46 BPM Atrial Rate : 46 BPM P-R Int : 202 ms QRS Dur : 92 ms QT Int : 474 ms P-R-T Axes : 99 38 63 degrees QTcB Int : 414 ms Sinus bradycardia Otherwise normal ECG No previous ECGs available Confirmed by Michael Chong ([id number]) on 01/05/2024 5:11:08 PM Referred By: Confirmed By: Michael Chong
== END 2024-01-04 15:21 | disposition home or self-care (01) ==
LOC: 4W 10:29 → ED 10:29 → SUATTDRO 15:53 → 4W 17:40